=== PATIENT | male | born 1940 | race Caucasian/White ===

== ENCOUNTER 2020-05-29 08:15 | Emergency (ER) | payer MEDICARE, SELFPAY ==
[2020-05-29 08:21] VITALS: BP 153/95; PULSE 70; RESP 18; TEMP 35.9; O2SAT 98
--- NOTE | 2020-05-29 08:21 | ED.MALEGU ---
HPI - Male Genitourinary General Chief complaint: Urogenital-Male Stated complaint: Im bleeding to from my testicle Time Seen by Provider: 05/29/20 08:21 Source: patient Mode of arrival: ambulatory Limitations: no limitations History of Present Illness HPI Narrative: Patient is an 80-year-old male who presents for evaluation of bleeding wound from testicle. Patient reportedly has a small abrasion to his left testicle that is bleeding. Patient is taking Xarelto daily as part of his home medication regimen, has not been able to get the bleeding to stop since 7 AM this morning. Patient denies any pain or urinary symptoms. He states that he was likely just scratching on his testicular area. Related Data Allergies Allergy/AdvReac Type Severity Reaction Status Date / Time Contrast Media Allergy Severe RASH Uncoded 05/29/20 08:24 Review of Systems Review of Systems: Narrative: CONSTITUTIONAL: Denies fever CARDIOVASCULAR: Denies chest pain RESPIRATORY: Denies cough or dyspnea. GASTROINTESTINAL: Denies abdominal pain SKIN: Denies rash, reports bleeding from left testicle MUSCULOSKELETAL: Denies back pain NEUROLOGIC: Denies headache [facility] Past Medical History Medical History (Updated 05/29/20 @ 08:42 by Lita Garcia MD) Atrial fibrillation COPD (chronic obstructive pulmonary disease) Depression DVT (deep venous thrombosis) Hyperlipidemia Hypertension Rectal cancer Type 2 diabetes mellitus Social History Social History (Updated 05/29/20 @ 08:40 by Lita Garcia MD) Smoking status: Former smoker Substance use: never Living arrangements: with family Gender identity (if verbalized by the patient): Male Exam Narrative: Exam Narrative: GENERAL: Awake, alert, conversant HEAD: Normocephalic, atraumatic. EYES: PERRLA and EOMI. ENT: Nares clear, no rhinorrhea or epistaxis. Mucous membranes moist. NECK: Supple. CHEST: No respiratory distress, breathing even and non labored HEART: Regular rate, sinus rhythm ABDOMEN:Non distended, non tender : Glans of penis is normal without lesions or exudate. No inguinal lymphadenopathy. No testicular tenderness, erythema or edema bilaterally. There is a small, superficial abrasion to the left testicle, embedded within a small fold. Minimal active bleeding, no brisk bleeding. EXTREMITIES: Normal range of motion. No edema. SKIN: Warm, dry, no rash. NEURO:No focal deficits. Alert and oriented x3 Course Vital Signs Vital signs: Vital Signs Temperature 35.9 C L 05/29/20 08:21 Pulse Rate 70 05/29/20 08:21 Respiratory Rate 18 05/29/20 08:21 Blood Pressure 153/95 H 05/29/20 08:21 Pulse Oximetry 98 05/29/20 08:21 Temperature 35.9 C L 05/29/20 08:21 Pulse Rate 70 05/29/20 08:21 Respiratory Rate 18 05/29/20 08:21 Blood Pressure 153/95 H 05/29/20 08:21 Pulse Oximetry 98 05/29/20 08:21 MDM - Male Genitourinary MDM Narrative Medical decision making narrative: Patient with a small left testicular abrasion with minimal active bleeding. Cleaned wound, no need for sutures or glue at this point. Did apply Surgicel, gauze and and a bandage. Applied an ice pack. No sign of severe anemia, no brisk bleeding, thus laboratory studies not performed. Patient advised to keep the area clean and dry, advised that because the patient is on Xarelto, he is more prone to bleeding risks. Patient discharged home in stable condition. Discharge Plan Discharge Clinical Impression: Abrasion of scrotum and testes, initial encounter Patient Disposition: Home, Self-Care Condition: Stable Instructions: Abrasion (ED) Additional Instructions: Your blood thinner makes you more prone to bleeding. Please do not touch the area. Please apply a cool compress and bandage and sit upright if you experience recurrent bleeding. Please contact your primary care physician for follow up from this visit. If you experience worsening pain, vomiting that do
[2020-05-29] MEDS: CELLULOSE OXIDIZED 2 x 14 INCH 1 PKT XX (08:41)
== END 2020-05-29 09:13 | disposition home or self-care (01) ==
PROVIDERS: Emergency Provider Emergency Medicine; PCP Family Medicine
DX: S30.813A Abrasion of scrotum and testes, initial encounter (principal); Z79.01 Long term (current) use of anticoagulants; I48.91 Unspecified atrial fibrillation; J44.9 Chronic obstructive pulmonary disease, unspecified; F32.9 Major depressive disorder, single episode, unspecified; Z86.718 Personal history of other venous thrombosis and embolism; E78.5 Hyperlipidemia, unspecified; I10 Essential (primary) hypertension; E11.9 Type 2 diabetes mellitus without complications; X58.XXXA Exposure to other specified factors, initial encounter
CPT/HCPCS: 12001; 99282

== ENCOUNTER 2021-08-28 14:23 | Emergency (ER) | payer MEDICARE, SELFPAY ==
[2021-08-28] VITALS (8 sets, daily range): BP systolic 68–81; BP diastolic 38–62; PULSE 36–162; TEMP 35.8
--- NOTE | 2021-08-28 14:36 | ECG_ITS ---
Measurements Intervals [place] Rate: 36 P: [place]: 0 QRS: 220 QRSD: 157 T: 139 QT: 449 QTc: 347 Interpretive Statements ATRIAL FLUTTER/TACHYCARDIA WITH SLOW VENTRICULAR RESPONSE RIGHT AXIS DEVIATION IVCD, FEATURES OF BOTH RBBB AND LBBB BASELINE ARTIFACT- I, II, III, AVR, AVF, V2-V6 ABNORMAL ECG Electronically Signed On 09-03-2021 8:41:03 SIDE GUIDER by Anastacio West D.O.
--- NOTE | 2021-08-28 21:05 | ED_ITS ---
HPI - CPR General Chief Complaint: Cardiac Arrest/CPR Stated Complaint: FULL ARREST Time Seen by Provider: 08/28/21 14:42 Source: EMS Mode of arrival: EMS Limitations: clinical condition History of Present Illness HPI narrative: This is an 81 year old male with history of atrial fibrillation, CHF, colon cancer who presents in cardiac arrest. EMS reports patient was witnessed to pass out or fall forward hitting his face. Patient was down for approximately 5 minutes prior to CPR being started. EMS reports AED used on patient and it did not advise shock. EMS reports patient was given 3 rounds of epinephrine and shocked once due to pulseless VTach. He was also given amiodarone 300 mg. They briefly got ROSC and then lost pulse. On arrival no pulse felt so CPR restarted. see code sheet. Related Data Allergies Allergy/AdvReac Type Severity Reaction Status Date / Time Contrast Media Allergy Severe RASH Uncoded 05/29/20 08:24 Review of Systems Review of Systems: ROS unobtainable: Yes unobtainable due to endotracheal tube (and unresponsive) [facility] Past Medical History Medical History (Updated 08/28/21 @ 21:07 by Yoko Roper MD) Atrial fibrillation Colostomy in place COPD (chronic obstructive pulmonary disease) Depression DVT (deep venous thrombosis) Hyperlipidemia Hypertension Rectal cancer Type 2 diabetes mellitus Surgical History Surgical History (Updated 08/28/21 @ 21:07 by Yoko Roper MD) History of colon resection Social History Social History (Updated 05/29/20 @ 08:40 by Lita Garcia MD) Smoking status: Former smoker Substance use: never Gender identity (if verbalized by the patient): Male Exam Const: General: ill appearing Other: unresponsive HENMT: Head: abrasion (forehead) and other (nasal bridge abrasion, ) Face and sinus: face symmetric Mouth: Yes other (intubated) Eyes: Other: pupils are fixed and dilated Resp: Other: intubated, bilateral breath sounds with baggin Cardio: Rate: regular rate Rhythm: abnormal rhythm Other: faint pulse GI: GI Palp: Yes Soft to palpation and No Guarding due to palpation present (GI) Other: LL colostomy bag Neuro: Other: unresponsive, GCS 3, unable to assess Extrem: Other: cyanotic Course Reevaluation(s) Reevaluation #1: I Spoke with patient's during code and she states they do not want ACLS continued if patient lost pulse again. She states his wishes would be for us to stop. Time of 1438 Date: 08/28/21 Time: 14:40 Vital Signs Vital signs: Vital Signs Pulse Rate 112 H 08/28/21 14:23 Temperature 96.5 F L 08/28/21 14:37 Pulse Rate 36 L 08/28/21 14:38 Blood Pressure 68/38 L 08/28/21 14:37 Critical Care Time Critical Care Time Critical Care Time: Yes Total Critical Care Time: 35 Discharge Plan Discharge Clinical Impression: Cardiac arrest Patient Disposition: Condition: Follow-up/Referrals: Elijah Kidd MD [Primary Care Provider] - Quality Keeley Coma Scale Eyes: No Response Verbal: No Response Motor: No Response Keeley Coma Total Score: 3
== END 2021-08-28 14:38 | disposition expired ==
PROVIDERS: Emergency Provider General Practice; PCP Family Medicine
DX: I46.9 Cardiac arrest, cause unspecified (principal); I48.91 Unspecified atrial fibrillation; J44.9 Chronic obstructive pulmonary disease, unspecified; F32.9 Major depressive disorder, single episode, unspecified; E11.9 Type 2 diabetes mellitus without complications; I11.0 Hypertensive heart disease with heart failure; I50.9 Heart failure, unspecified
CPT/HCPCS: 92950; 93005; 99285; J0171; J0461; J1265